=== PATIENT | female | born 1990 | race Caucasian/White ===

== ENCOUNTER 2017-04-23 00:54 | Emergency (ER) | payer MEDICAID, OTHER ==
[~2017-04-23] VITALS: Ht 165.1 cm; Wt 77.0 kg
[2017-04-23 01:01] VITALS: Ht 165.1 cm; Wt 77.0 kg
[2017-04-23] MEDS ORDERED: HYDROCODONE/APAP (5/325) TAB PO ONE (01:30)
--- NOTE | 2017-04-23 02:30 | RADRPT ---
PROCEDURE: Noncontrast CT Head. CLINICAL INDICATION: Trauma TECHNIQUE: Noncontrast CT of the head was obtained. The administered radiation dose was CTDI vol = 45 mGy, DLP = 720 mGy-cm. COMPARISON: No pertinent prior examinations were submitted for comparison. FINDINGS: The ventricles and sulci are within normal limits. There is no acute intracranial hemorrhage or ext ra-axial fluid collection. There is no mass effect. No midline shift is identified. There is no loss of peña-white differentiation to suggest acute infarction. The orbits are within normal limits. The paranasal sinuses and mastoid air cells are without fluid. No destructive osseous lesion is identified. IMPRESSION: No acute findings. RPTAT: HIKT .Shaun Reddy MD, MD Date Time Electronically viewed and signed by .Shaun Reddy MD, on 04/23/2017 02:29 .T/
--- NOTE | 2017-04-23 02:31 | RADRPT ---
PROCEDURE: CT Cervical Spine without contrast. CLINICAL INDICATION: Trauma TECHNIQUE: Noncontrast CT of the cervical spine was performed with axial images. Coronal and sagitta l images were also performed. The administered radiation dose was CTDI vol = 22 mGy, DLP = 605 mGy- cm. COMPARISON: There are no similar studies submitted for comparison. FINDINGS: There is mild reversal of the normal cervical lordosis which is likely positional. Vertebral body s tature and alignment are maintained. No acute fracture or subluxation is identified. The paraverteb ral and paraspinous soft tissues are unremarkable. IMPRESSION: No acute fracture or subluxation. RPTAT: HIKT .Shaun Reddy MD, MD Date Time Electronically viewed and signed by .Shaun Reddy MD, on 04/23/2017 02:31 .T/
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
[2017-04-23] MEDS ORDERED: IBUP-1542 PO (03:44)
[2017-04-23] MEDS ORDERED: IBUPROFEN 800 MG TAB PO ONE (04:00)
[2017-04-23 04:55] VITALS: BP 126/58; PULSE 68; RESP 18; TEMP 99.2
== END 2017-04-23 04:55 | disposition home or self-care (01) ==
LOC: FTE 00:54 → EEVIPCON 00:54 → EDBD 00:54 → FTE 04:55
DX: S01.01XA Laceration without foreign body of scalp, initial encounter (principal); Y04.2XXA Assault by strike against or bumped into by another person, initial encounter; Y92.9 Unspecified place or not applicable
CPT/HCPCS: 12001; 70450; 72125; Z7502; Z7610